=== PATIENT | male | born 1950 | race Caucasian/White ===

== ENCOUNTER 2016-08-01 19:26 | Inpatient (IN) | payer MEDICARE ==
[~2016-08-01] VITALS: Ht 172.7 cm; Wt 94.5 kg
[2016-08-02] MEDS ORDERED: METFORMIN HCL1000 M1 PO (01:58)
[2016-08-02] MEDS ORDERED: PLAVIX 75 MG TA75 MG PO (02:00)
[2016-08-02] MEDS ORDERED: ZANAFLEX4 M1 PO (02:00)
[2016-08-02] MEDS ORDERED: NITROSTAT 0.40.4 MG SL (02:01)
[2016-08-02] MEDS ORDERED: VITAMIN D5000 UNIT PO (02:02)
[2016-08-02] MEDS ORDERED: TIROSINT100 MCG PO (02:03)
[2016-08-02] MEDS ORDERED: GLUCOPHAGE 500500 MG PO (02:03)
[2016-08-02] MEDS ORDERED: GLUCOTROL 10 MG10 MG PO (02:04)
[2016-08-02] MEDS ORDERED: INDOCIN CAP 2525 MG PO (02:04)
[2016-08-02] MEDS ORDERED: ZESTRIL20 MG PO (02:05)
[2016-08-02] MEDS ORDERED: ZOCOR40 MG PO (02:05)
[2016-08-02] MEDS ORDERED: ASPIRIN CHEWABL81 MG PO (02:06)
[2016-08-02] MEDS ORDERED: BUTALB-ACETAMI1 EAC1 PO (02:06)
[2016-08-02 04:39] LABS: BUN/CREATININE RATIO 33 (0-10)
[2016-08-02 13:41] LABS: HEMOGLOBIN 11.1 gm/dl (14.0-17.5); RED BLOOD COUNT 3.76 M/UL (4.20-5.50); WHITE BLOOD COUNT 7.8 K/UL (4.5-11.0)
[2016-08-03] MEDS ORDERED: LOPRESSOR 25 MG25 MG PO (12:55)
[2016-08-03] MEDS ORDERED: K-DUR TAB 20 M20 MEQ PO (12:56)
[2016-08-03] MEDS ORDERED: LASIX 40 MG TAB40 MG PO (13:02)
== END 2016-08-03 14:00 | disposition home or self-care (01) | DRG 291 ==
LOC: PROG CARE 19:52
PROVIDERS: Internal Medicine; ADMIT Legal Medicine
DX: I11.0 Hypertensive heart disease with heart failure (principal); J96.01 Acute respiratory failure with hypoxia; I31.3 Pericardial effusion (noninflammatory); J98.11 Atelectasis; I50.43 Acute on chronic combined systolic (congestive) and diastolic (congestive) heart failure; I42.9 Cardiomyopathy, unspecified; I25.10 Atherosclerotic heart disease of native coronary artery without angina pectoris; E11.40 Type 2 diabetes mellitus with diabetic neuropathy, unspecified; E03.9 Hypothyroidism, unspecified; I27.2 Other secondary pulmonary hypertension; I08.1 Rheumatic disorders of both mitral and tricuspid valves; E78.5 Hyperlipidemia, unspecified; E66.9 Obesity, unspecified; Z68.32 Body mass index [BMI] 32.0-32.9, adult; Z95.5 Presence of coronary angioplasty implant and graft; Z87.891 Personal history of nicotine dependence; Z79.84 Long term (current) use of oral hypoglycemic drugs; Z79.02 Long term (current) use of antithrombotics/antiplatelets; Z79.82 Long term (current) use of aspirin; Z79.1 Long term (current) use of non-steroidal anti-inflammatories (NSAID); Z79.899 Other long term (current) drug therapy; Z88.2 Allergy status to sulfonamides; Z98.890 Other specified postprocedural states; Z82.49 Family history of ischemic heart disease and other diseases of the circulatory system
CPT/HCPCS: ECHO; 36415; 36600; 80048; 82550; 82553; 82803; 82962; 83036; 83880; 84443; 84484; 85027; 93005; 93306; 94640; 94664; J1940; J2270; J7050; Q9963

== ENCOUNTER → 2022-01-10 | Outpatient (CLI) | payer MEDICARE ==
[~2022-01-10] MED LIST: ASPIRIN CHEWABL81 MG PO; BUTALB-ACETAMI1 EAC1 PO; GLUCOPHAGE 500500 MG PO; GLUCOTROL 10 MG10 MG PO; INDOCIN CAP 2525 MG PO; K-DUR TAB 20 M20 MEQ PO; LASIX 40 MG TAB40 MG PO; LOPRESSOR 25 MG25 MG PO; METFORMIN HCL1000 M1 PO; NITROSTAT 0.40.4 MG SL; PLAVIX 75 MG TA75 MG PO; TIROSINT100 MCG PO; VITAMIN D5000 UNIT PO; ZANAFLEX4 M1 PO; ZESTRIL20 MG PO; ZOCOR40 MG PO
== END ==
LOC: HEART CORB 09:30
DX: I25.10 Atherosclerotic heart disease of native coronary artery without angina pectoris (principal); I50.32 Chronic diastolic (congestive) heart failure; I34.0 Nonrheumatic mitral (valve) insufficiency; I31.3 Pericardial effusion (noninflammatory); R07.2 Precordial pain
CPT/HCPCS: 78452; 93306; A9502; J2785